=== PATIENT | female | born 1940 | race Caucasian/White ===

== ENCOUNTER 2019-07-05 19:07 | Inpatient (IN) | payer MEDICARE, OTHER ==
[2019-07-05] MEDS ORDERED: Senna TAB 8.6 mg TAB PO PRN (20:53)
[2019-07-05] MEDS ORDERED: Magnesium Hydroxide LIQ 30 ML UDC PO PRN (20:53)
[2019-07-05] MEDS ORDERED: Polyethylene Glycol 3350 17 GM PACKET PO PRN (20:53)
[2019-07-05] MEDS: Morphine 2 MG/ML SYRINGE IV PRN (21:09)
[2019-07-05] MEDS ORDERED: Heparin 5000 UNITS/ML VIAL(*) 1 ml vial SUBCUT SCH (22:00)
[2019-07-05 22:17] LABS: Troponin I 0.03 ng/mL (<0.03)
[2019-07-05] MEDS: NS 0.9% 1000 ml BAG 1,000 ML IV SCH (22:35)
[2019-07-05] MEDS: Magnesium Hydroxide LIQ 30 ML UDC PO SCH (22:36)
[2019-07-06] MEDS ORDERED: NS 0.9% 500 ml BAG 500 ML IV ONE (01:45)
[2019-07-06] MEDS: Morphine 2 MG/ML SYRINGE IV PRN ×2 (04:43→11:30)
[2019-07-06] MEDS: NS 0.9% 1000 ml BAG 1,000 ML IV SCH ×2 (05:57→20:39)
[2019-07-06 06:44] LABS: Hematocrit 43 % (35-47); Hemoglobin 13.9 g/dL (12.0-16.0); Mean Corpuscular HGB Conc 33 g/dL (31-36); Mean Corpuscular Hemoglobin 31 pg (27-31); Mean Corpuscular Volume 96 fL (80-97); Mean Platelet Volume 10.7 fL (7.4-10.4); Platelet Count 155 10^3/uL (150-450); Red Blood Count 4.46 10^6 /uL (3.70-4.87); Red Cell Distribution Width 16 % (10-15); White Blood Count 13.3 10^3/uL (3.5-10.8)
[2019-07-06 06:48] LABS: Urine Appearance Turbid; Urine Bilirubin Negative (Negative); Urine Blood 3+ (Negative); Urine Color Amber; Urine Glucose Negative (Negative); Urine Ketones Negative (Negative); Urine Nitrite Negative (Negative); Urine Protein 1+(30 mg/dL) (Negative); Urine Specific Gravity 1.017 (1.010-1.030); Urine Urobilinogen Negative (Negative)
[2019-07-06 06:50] LABS: INR 1.22 (0.82-1.09)
[2019-07-06 06:55] LABS: BUN/Creatinine Ratio 17.8 (8-20); Calcium 8.2 mg/dL (8.6-10.3); EGFR African American 53.5 (>60); EGFR Non-African American 44.2 (>60); Potassium 4.4 mmol/L (3.5-5.0)
[2019-07-06 06:56] LABS: Urine Bacteria 1+ (Absent); Urine Red Blood Cell 3+(>10/hpf) (Absent); Urine White Blood Cell 3+(>20/hpf) (Absent)
[2019-07-06 07:28] LABS: ABS Basophils 0.1 10^3/ul (0-0.2); ABS Lymphocytes 1.3 10^3/ul (1.0-4.8); ABS Monocytes 2.1 10^3/ul (0-0.8); Eosinophil % 0.1 %; Lymphocyte % 9.4 %
[2019-07-06] MEDS ORDERED: Perflutren Lipid Microsphere 3 ML VIAL ONE (08:01)
[2019-07-06] MEDS: Magnesium Hydroxide LIQ 30 ML UDC PO SCH ×2 (11:06→20:51)
[2019-07-06] MEDS ORDERED: Morphine 2 MG/ML SYRINGE IV ONE (15:01)
[2019-07-07] MEDS ORDERED: Lactated Ringers 1000 ml BAG 1,000 ML IV SCH (00:05)
[2019-07-07] MEDS ORDERED: Famotidine IV 10 MG/ML 2 ml VIAL (20 mg) IV ONE (06:00)
[2019-07-07] MEDS ORDERED: fentaNYL 100 mcg/2 ml 50 MCG/ML VIAL ONE (07:53)
[2019-07-07] MEDS ORDERED: Dexamethasone IV 4 MG/ML VIAL 1 ml VIAL ONE (07:54)
[2019-07-07] MEDS ORDERED: Glycopyrrolate IV 0.2 MG/ML 1 ML VIAL ONE (07:54)
[2019-07-07] MEDS ORDERED: Ketamine HCL 50 mg/ml 10 ml VIAL (500 MG) ONE (07:54)
[2019-07-07] MEDS ORDERED: Propofol 10 MG/ML 20 ML BTL ONE (07:54)
[2019-07-07] MEDS ORDERED: Ondansetron 4 mg VIAL 2 MG/ML 2 ml VIAL ONE (07:54)
[2019-07-07] MEDS ORDERED: Succinylcholine 200 mg VIAL 20 mg/ml 10 ml VIAL (200 mg) ONE (07:57)
[2019-07-07] MEDS ORDERED: Phenylephrine 40 mcg/mL 10mL (400mcg) SYRINGE ONE (08:00)
[2019-07-07] MEDS ORDERED: Lidocaine 2% PF 5 ML VIAL ONE (08:00)
[2019-07-07] MEDS ORDERED: Clindamycin 900 MG/D5W BAG(*) 900 MG/50 ML BAG IVPB ONE (08:09)
[2019-07-07] MEDS: Magnesium Hydroxide LIQ 30 ML UDC PO SCH ×2 (08:23→22:10)
[2019-07-07] MEDS ORDERED: HYDROmorphone 1 MG/1 ML SYRINGE ONE (09:41)
[2019-07-07] MEDS ORDERED: Phenylephrine IV 10 MG/ML 1 ml VIAL ONE (09:59)
[2019-07-07] MEDS ORDERED: EPHEDrine (Pressors) 50 MG/ML VIAL ONE (10:00)
[2019-07-07] MEDS ORDERED: HYDROmorphone 1 MG/1 ML SYRINGE IV PRN (11:27)
[2019-07-07] MEDS ORDERED: Naloxone 0.4 mg VIAL 0.4 mg/ml 1 ml VIAL IV PRN (11:27)
[2019-07-07] MEDS ORDERED: Acetaminophen IV 1 GM/100ML 1,000 MG/100 ML VIAL IVPB ONE (11:27)
[2019-07-07] MEDS: Morphine 2 MG/ML SYRINGE IV PRN (13:18)
[2019-07-07] MEDS: NS 0.9% 1000 ml BAG 1,000 ML IV SCH (14:05)
[2019-07-07] MEDS: Clindamycin 600 MG/D5W BAG(*) 600 MG/50 ML BAG IV SCH (16:59)
[2019-07-08] MEDS: Clindamycin 600 MG/D5W BAG(*) 600 MG/50 ML BAG IV SCH ×2 (01:06→08:39)
[2019-07-08] MEDS: NS 0.9% 1000 ml BAG 1,000 ML IV SCH (04:19)
[2019-07-08 04:42] LABS: Hematocrit 34 % (35-47); Hemoglobin 10.8 g/dL (12.0-16.0); Mean Corpuscular HGB Conc 32 g/dL (31-36); Mean Corpuscular Hemoglobin 31 pg (27-31); Mean Corpuscular Volume 97 fL (80-97); Mean Platelet Volume 11.3 fL (7.4-10.4); Platelet Count 120 10^3/uL (150-450); Red Cell Distribution Width 16 % (10-15); White Blood Count 15.8 10^3/uL (3.5-10.8)
[2019-07-08 04:45] LABS: ABS Lymphocytes 0.8 10^3/ul (1.0-4.8); ABS Monocytes 2.4 10^3/ul (0-0.8); Lymphocyte % 5.1 %
[2019-07-08] MEDS ORDERED: Metoprolol Tartrate 5 mg VIAL 5 ml VIAL (1 mg/ml) IV ONE ×2 (05:44→13:17)
[2019-07-08] MEDS ORDERED: Diltiazem IV BAG D5W Premix 125 MG/125 ML BAG IV SCH (06:00)
[2019-07-08 06:11] LABS: BUN/Creatinine Ratio 17.6 (8-20); Blood Urea Nitrogen 19 mg/dL (6-24); CO2 Carbon Dioxide 27 mmol/L (22-32); Calcium 7.7 mg/dL (8.6-10.3); EGFR African American 59.2 (>60); EGFR Non-African American 48.9 (>60); Glucose 123 mg/dL (70-100); Magnesium 2.1 mg/dL (1.9-2.7)
[2019-07-08 06:17] LABS: Troponin I 0.17 ng/mL (<0.03)
[2019-07-08 06:18] LABS: Anion Gap 4 mmol/L (2-11); Chloride 117 mmol/L (101-111); Sodium 148 mmol/L (135-145)
[2019-07-08] MEDS: Digoxin IV 0.5 MG/2 ML AMP (0.25 MG/ML) IV SLOW PU ONE ×2 (06:18→10:43)
[2019-07-08] MEDS ORDERED: NS 0.45% 1000 ml BAG 1,000 ML IV SCH ×2 (07:00→08:47)
[2019-07-08] MEDS: Magnesium Hydroxide LIQ 30 ML UDC PO SCH ×2 (08:35→22:33)
[2019-07-08] MEDS: Enoxaparin 30 MG/0.3 ML SYR(*) SUBCUT SCH (13:09)
[2019-07-08 14:46] LABS: BUN/Creatinine Ratio 19.1 (8-20); Calcium 7.5 mg/dL (8.6-10.3); EGFR Non-African American 47.9 (>60)
[2019-07-08 14:51] LABS: Troponin I 0.36 ng/mL (<0.03)
[2019-07-08] MEDS: D5W 1000 ml BAG 1,000 ML IV SCH (15:59)
[2019-07-08] MEDS ORDERED: D5W 1000 ml BAG 1,000 ML IV SCH (16:00)
[2019-07-09] MEDS: D5W 1000 ml BAG 1,000 ML IV SCH (00:34)
[2019-07-09 08:14] LABS: Calcium 7.2 mg/dL (8.6-10.3); Potassium 3.7 mmol/L (3.5-5.0)
[2019-07-09 08:20] LABS: BUN/Creatinine Ratio 18.4 (8-20); EGFR African American 66.2 (>60); EGFR Non-African American 54.7 (>60)
[2019-07-09 08:27] LABS: ABS Eosinophils 0.1 10^3/ul (0-0.6); ABS Lymphocytes 1.4 10^3/ul (1.0-4.8); ABS Monocytes 1.9 10^3/ul (0-0.8); Eosinophil % 0.4 %; Hematocrit 34 % (35-47); Hemoglobin 10.2 g/dL (12.0-16.0); Lymphocyte % 9.5 %; Mean Corpuscular HGB Conc 30 g/dL (31-36); Mean Corpuscular Hemoglobin 31 pg (27-31); Mean Corpuscular Volume 102 fL (80-97); Mean Platelet Volume 11.3 fL (7.4-10.4); Nucleated Red Blood Cells % 0.1; Platelet Count 116 10^3/uL (150-450); Red Blood Count 3.33 10^6 /uL (3.70-4.87); Red Cell Distribution Width 17 % (10-15); White Blood Count 15.2 10^3/uL (3.5-10.8)
[2019-07-09 10:18] LABS: Albumin 2.7 g/dL (3.2-5.2); Total Bilirubin 0.6 mg/dL (0.2-1.0)
[2019-07-09 10:24] LABS: Albumin/Globulin Ratio 1.2 (1-3); Globulin 2.3 g/dL (2-4)
[2019-07-09] MEDS: Morphine 2 MG/ML SYRINGE IV PRN (12:35)
[2019-07-09] MEDS: Enoxaparin 30 MG/0.3 ML SYR(*) SUBCUT SCH (12:39)
[2019-07-10 06:39] LABS: ABS Eosinophils 0.2 10^3/ul (0-0.6); ABS Lymphocytes 1.2 10^3/ul (1.0-4.8); ABS Monocytes 1.4 10^3/ul (0-0.8); Eosinophil % 1.4 %; Hematocrit 32 % (35-47); Hemoglobin 10.1 g/dL (12.0-16.0); Lymphocyte % 9.7 %; Mean Corpuscular HGB Conc 32 g/dL (31-36); Mean Corpuscular Hemoglobin 31 pg (27-31); Mean Corpuscular Volume 98 fL (80-97); Mean Platelet Volume 11.2 fL (7.4-10.4); Platelet Count 120 10^3/uL (150-450); Red Blood Count 3.25 10^6 /uL (3.70-4.87); Red Cell Distribution Width 16 % (10-15); White Blood Count 12.1 10^3/uL (3.5-10.8)
[2019-07-10] MEDS: Enoxaparin 30 MG/0.3 ML SYR(*) SUBCUT SCH (13:15)
[2019-07-11] MEDS: Enoxaparin 30 MG/0.3 ML SYR(*) SUBCUT SCH (10:54)
[2019-07-11 11:27] VITALS: BP 105/49
== END 2019-07-11 12:05 | DRG 481 ==
LOC: SSU 20:29 → ICU 07-08 05:47 → SSU 07-08 08:45
PROVIDERS: ADMIT Hospitalist; ATTEND Hospitalist